=== PATIENT | female | born 1985 | race African-American/Black ===

== ENCOUNTER 2023-06-05 10:01 | Emergency (ER) | payer OTHER ==
[~2023-06-05] VITALS: Ht 172.7 cm; Wt 58.5 kg
[~2023-06-05 10:01] MED LIST: ACET-8905 PO; CEPH500C16 PO; CLIN300C2 PO; PRON INH
[2023-06-05 10:23] VITALS: BP 145/81; PULSE 121; RESP 20; TEMP 98.1; O2SAT 100
[2023-06-05] MEDS ORDERED: KETOROLAC 30 MG/ML VIAL IVP ONE (10:45)
[2023-06-05] MEDS ORDERED: NACL 0.9% 1,000 ML IV ONE (10:45)
[2023-06-05 11:21] LABS: FLU A ANTIGEN negative (NEGATIVE); FLU B ANTIGEN NEGATIVE (NEGATIVE)
[2023-06-05] MEDS ORDERED: ONDANSETRON 4 MG/2 ML VIAL IVP ONE (11:35)
[2023-06-05] MEDS ORDERED: MORPHINE SULFATE 4 MG/ML SYR IVP ONE (11:35)
[2023-06-05] MEDS ORDERED: HYDR-5191 PO ×2 (12:47→13:07)
[2023-06-05] MEDS ORDERED: IBUP-2213 PO ×2 (12:47→13:07)
[2023-06-05] MEDS ORDERED: ONDA8TAB87 PO ×2 (12:47→13:07)
[2023-06-05] MEDS ORDERED: COROTSOL LEFT EAR ×2 (12:47→13:07)
[2023-06-05 13:28] VITALS: BP 145/81; PULSE 121; RESP 20; TEMP 98.1; O2SAT 100
== END 2023-06-05 13:28 | disposition home or self-care (01) ==
LOC: MED 10:01
DX: R51.9 Headache, unspecified (principal); M79.18 Myalgia, other site; H60.91 Unspecified otitis externa, right ear; Z20.822 Contact with and (suspected) exposure to COVID-19; J45.909 Unspecified asthma, uncomplicated; Z79.899 Other long term (current) drug therapy; Z79.2 Long term (current) use of antibiotics
CPT/HCPCS: 87426; 87804; 96361; 96374; 96375; 99284; J1885; J2270; J2405; J7030